=== PATIENT | female | born 1980 | race Caucasian/White ===

== ENCOUNTER 2018-10-23 05:55 | Day surgery (SDC) | payer OTHER | END 2018-10-23 16:45 | disposition home or self-care (01) | LOC: CIR.AMB 05:55 | DX: N84.0 Polyp of corpus uteri (principal) ==

== ENCOUNTER 2019-03-07 16:01 | Emergency (ER) | payer OTHER ==
[~2019-03-07] VITALS: Ht 162.6 cm; Wt 77.1 kg
== END 2019-03-07 19:09 | disposition home or self-care (01) ==
LOC: ER 16:01
DX: S46.812A Strain of other muscles, fascia and tendons at shoulder and upper arm level, left arm, initial encounter (principal); X50.3XXA Overexertion from repetitive movements, initial encounter; Y93.89 Activity, other specified; Y92.832 Beach as the place of occurrence of the external cause; Y99.8 Other external cause status